=== PATIENT | female | born 1975 | race African-American/Black ===

== ENCOUNTER 2018-06-15 17:55 | Emergency (ER) | payer MEDICAID, OTHER ==
[~2018-06-15] VITALS: Ht 165.1 cm; Wt 61.0 kg
[2018-06-15] MEDS ORDERED: LORAZEPAM 1MG TABLET PO ONE (18:30)
[2018-06-15 19:29] LABS: CHLORIDE 111 mEq/L (98-107)
[2018-06-15 19:33] LABS: BASOPHILS % 0.6 % (0.0-2.0); EOSINOPHILS % 0.1 % (0.0-5.0); HEMATOCRIT. 29.3 % (36.0-48.0); HEMOGLOBIN. 8.2 g/dL (12.0-16.0); LYMPHOCYTES % 7.2 % (20.0-50.0); MEAN CORPUSCULAR HEMOGLOBIN 16.1 pg (28.0-32.0); MEAN CORPUSCULAR VOLUME 57.6 fL (81.0-99.0); MEAN PLATELET VOLUME 8.8 fl (7.4-10.4); MONOCYTES % 4.4 % (2.0-8.0); NEUTROPHILS % 87.7 % (40.0-76.0); PLATELET 307 x1000/uL (130-400); RED BLOOD CELL COUNT 5.09 mill/uL (4.2-5.4); RED CELL DISTRIBUTION WIDTH 20.5 % (11.6-14.6)
[2018-06-15 19:34] LABS: ETHANOL BLOOD < 10 mg/dL
[2018-06-15 19:59] LABS: PLATELET ESTIMATE NORMAL
[2018-06-15] MEDS ORDERED: ACETAMINOPHEN 325MG TABLET PO STA (19:59)
[2018-06-15] MEDS ORDERED: SODIUM CHLORIDE 0.9% 1,000 ML IV ONE (19:59)
[2018-06-15] MEDS ORDERED: CEFTRIAXONE 1 G PREMIX 50 ML IV ONE (20:00)
[2018-06-15 20:17] LABS: CLARITY URINE CLOUDY (CLEAR); COLOR URINE DARK YELLOW (YELLOW); KETONES URINE TRACE (NEGATIVE); LEUKOCYTE ESTERASE URINE NEGATIVE (NEGATIVE); NITRITE URINE NEGATIVE (NEGATIVE); OCCULT BLOOD URINE 3+ (NEGATIVE); PROTEIN URINE 2+ (NEGATIVE); SPECIFIC GRAVITY URINE 1.033 (1.005-1.030)
[2018-06-15 20:34] LABS: *AMPHETAMINES SCREEN URINE NEGATIVE (NEGATIVE)
[2018-06-15 20:35] LABS: *BARBITURATES SCREEN URINE NEGATIVE (NEGATIVE); *BENZODIAZEPINES SCREEN URINE NEGATIVE (NEGATIVE); *COCAINE SCREEN URINE NEGATIVE (NEGATIVE); METHADONE URINE SCREEN NEGATIVE (NEGATIVE); OPIATES URINE SCREEN NEGATIVE (NEGATIVE); PHENCYCLIDINE URINE SCREEN NEGATIVE (NEGATIVE)
[2018-06-15 20:45] LABS: CANNABINOID URINE SCREEN PRESUMTIVE POSITIVE (NEGATIVE)
[2018-06-15] MEDS ORDERED: POTASSIUM CHLORIDE 20MEQ TABLET SR PO ONE (20:45)
[2018-06-16 11:35] VITALS: BP 124/65
== END 2018-06-16 13:45 | disposition home or self-care (01) ==
LOC: ER 17:55
DX: F23 Brief psychotic disorder (principal); R50.9 Fever, unspecified; Z73.3 Stress, not elsewhere classified; R45.1 Restlessness and agitation; Z59.0 Homelessness
CPT/HCPCS: 36415; 80053; 80305; 80307; 80320; 80329; 81003; 81025; 85025; 87040; 87804; 96365; 99284; J0696; J7030; Z7610; G0480

== ENCOUNTER 2018-06-20 14:10 | Emergency (ER) | payer MEDICAID ==
[~2018-06-20] VITALS: Ht 162.6 cm; Wt 65.0 kg
[2018-06-20] MEDS ORDERED: LORAZEPAM 2MG/ML CPJ IM ONE (17:30)
[2018-06-20 18:06] LABS: HEMATOCRIT. 32.3 % (36.0-48.0); HEMOGLOBIN. 9.2 g/dL (12.0-16.0); MEAN CORPUSCULAR HEMOGLOBIN 16.3 pg (28.0-32.0); MEAN CORPUSCULAR VOLUME 57.1 fL (81.0-99.0); MEAN PLATELET VOLUME 9.1 fl (7.4-10.4); PLATELET 357 x1000/uL (130-400); RED BLOOD CELL COUNT 5.66 mill/uL (4.2-5.4); RED CELL DISTRIBUTION WIDTH 20.5 % (11.6-14.6)
[2018-06-20 18:12] LABS: CHLORIDE 106 mEq/L (98-107)
[2018-06-20 18:16] LABS: ETHANOL BLOOD < 10 mg/dL
[2018-06-20] MEDS ORDERED: POTASSIUM CHLORIDE 20MEQ TABLET SR PO NR (18:30)
[2018-06-20 18:44] LABS: PLATELET ESTIMATE NORMAL
[2018-06-20 19:10] LABS: *AMPHETAMINES SCREEN URINE NEGATIVE (NEGATIVE); *BARBITURATES SCREEN URINE NEGATIVE (NEGATIVE)
[2018-06-20 19:11] LABS: *BENZODIAZEPINES SCREEN URINE NEGATIVE (NEGATIVE); *COCAINE SCREEN URINE NEGATIVE (NEGATIVE); METHADONE URINE SCREEN NEGATIVE (NEGATIVE); OPIATES URINE SCREEN NEGATIVE (NEGATIVE); PHENCYCLIDINE URINE SCREEN NEGATIVE (NEGATIVE)
[2018-06-20 19:47] LABS: CANNABINOID URINE SCREEN PRESUMTIVE POSITIVE (NEGATIVE)
[2018-06-21 09:35] VITALS: BP 128/65
== END 2018-06-21 10:09 | disposition home or self-care (01) ==
LOC: ER 14:10
DX: F12.150 Cannabis abuse with psychotic disorder with delusions (principal); R45.851 Suicidal ideations
CPT/HCPCS: 36415; 80048; 80305; 80307; 80320; 80329; 85025; 96372; 99284; J2060; G0480